=== PATIENT | female | born 1980 | race Hispanic/Latino ===

== ENCOUNTER 2017-05-17 20:48 | Emergency (ER) | payer OTHER ==
[2017-05-17 21:28] VITALS: BP 120/85; PULSE 75; RESP 18; TEMP 98.2; O2SAT 97; BMI 32.9
--- NOTE | 2017-05-17 22:10 | ED PDOC ---
Arrival/HPI - General Chief Complaint: Abdominal Pain Time Seen by Provider: 05/17/17 21:53 - History of Present Illness Narrative History of Present Illness (Text): 05/17/17 22:06 CC: LLQ pain x1 week This patient is a 37yo F w/ a Past medical history of endometriosis s/p hysterectomy (still with cervix and ovaries), celiac disease, history of colon cancer early in the family (last colonscopy was 2 years ago, they removed 2 precancerous polypys; her family members at 36/38 of colon CA) who is coming to the ER w/ a 1wk history of RLQ pain, fevers/chills. States she took ibuprofen to make it better, which helped both the pain and fevers. Patient is not on another form of control, is currently sexually active with one male partner without condoms. Denies headache, chest pain, shortness of breath, dysuria/freq/urg, or lower extremity pain swelling. Admits to lower abdominal pain, worse on the LLQ, colicky in nature that is relieved by ibuprofen. PastMedhx: Celiac disease, endometriosis s/p hysterectomy Meds: Denies FamHx: Colon CA in 30's with , thyroid cancer Surgeries: Hysterectomy Allergies: Gluten, grapefruit, PCN, sulfa (Emir Mario) Past Medical History - Infectious Disease Hx of Infectious Diseases: None - Cardiac Hx Cardiac Disorders: No - Pulmonary Hx Respiratory Disorders: No - HEENT Hx HEENT Disorder: No - Renal Hx Neurogenic Bladder: No - Endocrine/Metabolic Hx Diabetes Insipidus: No - Hematological/Oncological Hx Sickle Cell Disease: No - Musculoskeletal/Rheumatological Hx Fractures: No - Gastrointestinal Hx Gastrointestinal Disorders: Yes Other/Comment: celiac disease - Genitourinary/Gynecological Hx Genitourinary Disorders: No - Psychiatric Hx Psychophysiologic Disorder: No Hx Substance Use: No - Surgical History Hx Cholecystectomy: Yes Hx Hysterectomy: Yes Hx Orthopedic Surgery: Yes (L shoulder) - Anesthesia Hx Anesthesia: Yes Hx Anesthesia Reactions: No Family/Social History - Physician Review Nursing Documentation Reviewed: Yes Family/Social History: Diabetes, Hypertension, Neoplasm/Cancer Smoking Status: Current Some Days Smoker Hx Alcohol Use: No Hx Substance Use: No Allergies/Home Meds Allergies/Adverse Reactions: Allergies gluten Allergy (Verified 05/17/17 21:29) DIARRHEA grapefruit Allergy (Verified 05/17/17 21:29) ANAPHYLAXIS Penicillins Allergy (Verified 05/17/17 21:29) ANGIOEDEMA Sulfa (Sulfonamide Antibiotics) Allergy (Verified 05/17/17 21:29) ANAPHYLAXIS Home Medications: Home Meds Medication Instructions Recorded Confirmed No Known Home Med 05/17/17 05/17/17 Review of Systems - Review of Systems Constitutional: absent: Fatigue, Weight Change Eyes: absent: Vision Changes, Photophobia ENT: absent: Hearing Changes, Tinnitus Respiratory: absent: SOB, Cough Cardiovascular: absent: Chest Pain Gastrointestinal: Abdominal Pain, Diarrhea. absent: Stool Changes, Constipation , Nausea, Vomiting, Appetite Changes, Hematochezia, Hematemesis, Anorexia, Food Intolerance Genitourinary Female: absent: Dysuria, Frequency, Hematuria Musculoskeletal: absent: Arthralgias Skin: absent: Rash, Pruritis Neurological: absent: Headache, Dizziness Endocrine: absent: Diaphoresis Hemo/Lymphatic: absent: Adenopathy Psychiatric: absent: Anxiety, Depression Physical Exam Temperature: Afebrile Blood Pressure: Normal Pulse: Regular Respiratory Rate: Normal Appearance: Positive for: Non-Toxic (in slight pain laying flat on the bed ) Mental Status: Positive for: Alert and Oriented X 3 - Systems Exam Head: Present: Atraumatic Pupils: Present: PERRL Extroacular Muscles: Present: EOMI Conjunctiva: Present: Normal Mouth: No: Dry Pharnyx: No: ERYTHEMA, EXUDATE Neck: Present: Normal Range of Motion. No: Meningeal Signs Respiratory/Chest: Present: Clear to Auscultation, Good Air Exchange. No: Respiratory Distress, Accessory Muscle Use Cardiovascular: Present: Regular Rate and Rhythm, Normal S1, S2. No: Murmurs Abdomen: Present: Tenderness (LLQ), Rebound (LLQ), Guarding. No: Distention, Normal Bowel Sounds, Peritoneal Signs, McBurney's Point Tender, Rovsing's Sign Present, Hernias, Feeding Tubes, Ostomy Tubes, Mass/Organomegaly Genitourinary/Pelvic Exam: Present: Normal External Genitalia, Adenexal Tenderness (Left side), Cervical os Closed. No: Vaginal Discharge, Vaginal Bleeding, Vaginal Lesions, Adenexal Mass, Cervical Motion Tendernes, Odor Back: No: CVA Tenderness Upper Extremity: Present: Normal Inspection. No: Cyanosis, Edema Lower Extremity: Present: Normal Inspection. No: Edema Neurological: Present: GCS=15, CN II-XII Intact, Speech Normal Skin: Present: Warm Psychiatric: Present: Alert, Oriented x 3 Vital Signs Temp Pulse Resp BP Pulse Ox 05/17/17 21:28 98.2 F 75 18 120/85 97 Medical Decision Making ED Course and Treatment: Patient Seen With Resident: In agreement with resident note which contains more details about the patient. Patient was seen and evaluated with resident. Came up with plan and treatment together. (Helen Santoyo) 05/17/17 22:14 DDx: Ovarian Torsion vs Ovarian Cyst vs Celiac disease flare CMP CBC urinalysis preg test Pelvic US Lipase Pelvic exam unremarkable Dispo and reassess 05/17/17 22:58 negative Labs WNL Pending Transvaginal US 05/18/17 00:13 Pelvic US shows L Ovarian Cyst w/ small follicles; no sign of free fluid torsion or ectopic 05/18/17 00:21 The patient is stable for d/c as per Dr. Santoyo The patient should f/u with her private OBGYN within the week to discuss results and options The patient was told to take OTC ibuprofen for pain, as well as hot compresses to her abdomen (Emir Mario) - Lab Interpretations Lab Results: 05/17/17 22:36 05/17/17 22:36 Lab Results 05/17/17 22:36: Blood Type O NEGATIVE, Antibody Screen Negative, BBK History Checked No verified bt 05/17/17 22:36: pO2 57 H, VBG pH 7.39, VBG pCO2 42.0, VBG HCO3 25.4, VBG Total CO2 26.7, VBG O2 Sat (Calc) 94.0 H, VBG Base Excess 0.3, VBG Potassium 3.9, Sodium 138.0, Chloride 106.0, Glucose 97, Lactate 0.8, FiO2 21.0, Venous Blood Potassium 3.9 05/17/17 22:36: Sodium 141, Chloride 107, Potassium 4.2, Carbon Dioxide 25, Anion Gap 13, BUN 11, Creatinine 0.7, Est GFR ( Amer) > 60, Est GFR (Non- Af Amer) > 60, Random Glucose 98, Calcium 9.1, Total Bilirubin 0.6, AST 19, ALT 26, Alkaline Phosphatase 60, Total Protein 7.1, Albumin 4.0, Globulin 3.1, Albumin/Globulin Ratio 1.3, Lipase 96 05/17/17 22:36: Urine Color Yellow, Urine Appearance Clear, Urine pH 6.0, Ur Specific [place] >= 1.030, Urine Protein Trace H, Urine Glucose (UA) Negative, Urine Ketones Trace H, Urine Blood Small H, Urine Nitrate Negative, Urine Bilirubin Negative, Urine Urobilinogen 0.2, Ur Leukocyte Esterase Negative, Urine RBC 1 - 3, Urine WBC 2 - 5, Ur Epithelial Cells 6 - 8, Urine Bacteria Mod , Urine HCG, Qual Negative 05/17/17 22:36: WBC 9.5, RBC 4.79, Hgb 14.9, Hct 44.0, MCV 91.9, MCH 31.1, MCHC 33.9, RDW 13.9, Plt Count 288, MPV 9.3, Gran % 61.6, Lymph % (Auto) 25.7, [place] % (Auto) 7.6 H, Eos % (Auto) 4.8, Baso % (Auto) 0.3, Gran # 5.85, Lymph # 2.4, [place] # 0.7 H, Eos # 0.5, Baso # 0.03 - RAD Interpretation Radiology Orders: 05/17/17 22:01 TRANSVAGINAL [US] Stat - Medication Orders Current Medication Orders: Discontinued Medications Acetaminophen (Tylenol 325mg Tab) 650 mg PO STAT STA Stop: 05/17/17 22:24 Last Admin: 05/17/17 22:44 Dose: 650 mg MAR Pain/Vitals Document 05/17/17 22:44 SS (Rec: 05/17/17 22:44 SS [id number]) Pain Reassessment Is This A Pain ReAssessment? No Sleep Is patient sleeping during reassessment? No Presence of Pain Presence of Pain Yes Ketorolac Tromethamine (Toradol) 30 mg IVP STAT STA Stop: 05/17/17 23:56 Last Admin: 05/18/17 00:08 Dose: 30 mg MAR Pain Assessment Document 05/18/17 00:08 SS (Rec: 05/18/17 00:08 SS [id number]) Pain Reassessment Is this a pain reassessment? Yes Sleep Is patient sleeping during reassessment? No Presence of Pain Presence of Pain Yes Location Upper or Lower Lower Pain Location Body Site Abdomen IVP Administration Document 05/18/17 00:08 SS (Rec: 05/18/17 00:08 SS [id number]) Charges for Administration # of IVP Administrations 1 Ondansetron HCl (Zofran Inj) 4 mg IVP STAT STA Stop: 05/17/17 22:24 Last Admin: 05/17/17 22:44 Dose: 4 mg IVP Administration Document 05/17/17 22:44 SS (Rec: 05/17/17 22:[address]) Charges for Administration # of IVP Administrations 1 Disposition/Present on Arrival - Present on Arrival Any Indicators Present on Arrival: No History of DVT/PE: No History of Uncontrolled Diabetes: No Urinary Catheter: No History of Decub. Ulcer: No History Surgical Site Infection Following: None - Disposition Have Diagnosis and Disposition been Completed?: Yes Disposition Time: 00:22 Patient Plan: Discharge - Disposition Diagnosis: Ovarian cyst Diagnosis: (Ruled Out): Ovarian cyst affecting in first trimester, antepartum Disposition: HOME/ ROUTINE Patient Problems: Current Active Problems Problem Status Onset Ovarian cyst Acute Condition: FAIR Discharge Instructions (ExitCare): Ovarian Cyst (ED) Additional Instructions: You should follow up with your OBGYN within the week to discuss your results of your L Ovarian Cyst You can take Ibuprofen OTC as indicated on the bottle for pain and use warm compresses to the abdomen for pain relief It was a pleasure taking care of you, please feel better. [facility] - Follow up with primary Forms: [employer] (Welsh)
[2017-05-17 22:41] LABS: BASO # 0.03 K/mm3 (0.0-2.0); BASO % 0.3 % (0.0-3.0); EOS # 0.5 (0.0-0.7); EOS % 4.8 % (1.5-5.0); GRAN # 5.85 (1.4-6.5); GRAN % 61.6 % (50.0-68.0); LYMPH # 2.4 (1.2-3.4); LYMPH % 25.7 % (22.0-35.0); MEAN CELL VOLUME 91.9 fl (80.0-105.0); MEAN CORPUSCULAR HEMOGLOBIN 31.1 pg (25.0-35.0); MEAN CORPUSCULAR HGB CONC 33.9 g/dl (31.0-37.0); MEAN PLATELET VOLUME 9.3 fl (7.0-11.0); MONO # 0.7 (0.1-0.6); MONO % 7.6 % (1.0-6.0); RED CELL DISTRIBUTION WIDTH 13.9 % (11.5-14.5); VENOUS BLOOD GAS BASE EXCESS 0.3 mmol/L (0.0-2.0); VENOUS BLOOD PH 7.39 (7.32-7.43); WHITE BLOOD COUNT 9.5 10^3/ul (4.5-11.0)
[2017-05-17 22:42] LABS: URINE BILIRUBIN NEGATIVE (NEGATIVE); URINE BLOOD SMALL (NEGATIVE); URINE GLUCOSE (UA) NEGATIVE (NEGATIVE); URINE KETONE TRACE mg/dL (NEGATIVE); URINE LEUKOCYTE ESTERASE NEGATIVE Leu/uL (NEGATIVE); URINE PROTEIN TRACE mg/dL (<30 mg/dL); URINE UROBILINOGEN 0.2 E.U./dL (<1 E.U./dL)
[2017-05-17 22:50] LABS: ALB/GLOB RATIO 1.3 (1.1-1.8); ALKALINE PHOSPHATASE 60 U/L (38-126); ALT/SGPT 26 U/L (7-56); AST/SGOT 19 U/L (14-36); BILIRUBIN,TOTAL 0.6 mg/dL (0.2-1.3); BLOOD UREA NITROGEN 11 mg/dL (7-21); CALCIUM 9.1 mg/dL (8.4-10.5); CARBON DIOXIDE 25 mmol/L (21-33); CHLORIDE 107 mmol/L (98-107); GFR AFRICAN-AMERICAN > 60; GLUCOSE,RANDOM 98 mg/dL (70-110); LIPASE 96 U/L (23-300); POTASSIUM 4.2 mmol/L (3.6-5.0); SODIUM 141 mmol/L (132-148); TOTAL PROTEIN 7.1 g/dL (5.8-8.3)
[2017-05-17 22:51] LABS: URINE APPEARANCE CLEAR (CLEAR); URINE COLOR YELLOW (YELLOW)
[2017-05-17 22:54] LABS: URINE BACTERIA MOD (NEG)
--- NOTE | 2017-05-17 23:59 | US ---
EXAM: US Pelvis Complete, Transabdominal CLINICAL HISTORY: 37 years old, female; Pain; Pelvic pain TECHNIQUE: Real-time transabdominal pelvic ultrasound (complete) with image documentation. COMPARISON: No relevant prior studies available. FINDINGS: Uterus/cervix: Hysterectomy. Right ovary: 3.1 x 2.9 x 3.0 cm in size. No mass. Small follicles. Normal flow. Left ovary: 3.1 x 2.3 x 2.7 cm in size. 1.1 x 1.2 x 1.1 cm anechoic lesion. Small follicles. Normal flow. Free fluid: No significant free fluid. Bladder: Unremarkable as visualized. IMPRESSION: 1. LEFT ovarian cyst. 2. Incidental/non-acute findings are described above. EXAM: US Pelvis, Transvaginal CLINICAL HISTORY: 37 years old, female; Pain; Pelvic pain TECHNIQUE: Real-time transvaginal pelvic ultrasound (complete) with image documentation. Transvaginal imaging was used for better evaluation of the endometrium and adnexa. COMPARISON: No relevant prior studies available. FINDINGS: Uterus/cervix: Hysterectomy. Right ovary: 3.1 x 2.9 x 3.0 cm in size. No mass. Small follicles. Normal flow. Left ovary: 3.1 x 2.3 x 2.7 cm in size. 1.1 x 1.2 x 1.1 cm anechoic lesion. Small follicles. Normal flow. Free fluid: No significant free fluid. Bladder: Empty bladder which cannot be evaluated with this probe.
== END 2017-05-18 00:41 | disposition home or self-care (01) ==
LOC: ED 20:48
DX: N83.202 Unspecified ovarian cyst, left side (principal)
CPT/HCPCS: 76830; 80053; 81001; 82803; 83690; 84703; 85025; 86850; 86900; 96374; 96375; 99283; J1885; J2405

== ENCOUNTER 2017-06-30 19:11 | Emergency (ER) | payer OTHER ==
[2017-06-30 19:12] VITALS: BMI 32.9
[2017-06-30 19:27] VITALS: RESP 18; TEMP 98.4; O2SAT 97
--- NOTE | 2017-06-30 19:41 | ED PDOC ---
Arrival/HPI <Rajiv Potter - Last Filed: 06/30/17 19:53> - General Historian: Patient <Donis Agarwal - Last Filed: 06/30/17 20:31> - General Chief Complaint: Chest Pain Time Seen by Provider: 06/30/17 19:23 - History of Present Illness Narrative History of Present Illness (Text): 06/30/17 19:35 37yo female with PMHx of Celiac disease present with complaint of worsening nonproductive cough. states she was seen at Urgent care and was given Zpack without relieve. taking Nyquil without relieve. Started having right sided chest and back pain with cough since yesterday. Denies fever, chills, SOB, diaphoresis, LE edema, calf pain, fever, chills, recent travel, OCP use, any other complaint. (Donis Agarwal) Past Medical History - Provider Review Nursing Documentation Reviewed: Yes - Infectious Disease Hx of Infectious Diseases: None - Cardiac Hx Cardiac Disorders: No - Pulmonary Hx Respiratory Disorders: No - HEENT Hx HEENT Disorder: No - Renal Hx Neurogenic Bladder: No - Endocrine/Metabolic Hx Diabetes Insipidus: No - Hematological/Oncological Hx Sickle Cell Disease: No - Musculoskeletal/Rheumatological Hx Fractures: No - Gastrointestinal Hx Gastrointestinal Disorders: Yes Other/Comment: celiac disease - Genitourinary/Gynecological Hx Genitourinary Disorders: No - Psychiatric Hx Psychophysiologic Disorder: No Hx Substance Use: No - Surgical History Hx Cholecystectomy: Yes Hx Hysterectomy: Yes Hx Orthopedic Surgery: Yes (L shoulder) - Anesthesia Hx Anesthesia: Yes Hx Anesthesia Reactions: No <Donis Agarwal - Last Filed: 06/30/17 20:31> Family/Social History - Physician Review Nursing Documentation Reviewed: Yes Family/Social History: Unknown Family HX Smoking Status: Current Some Days Smoker Hx Alcohol Use: No Hx Substance Use: No <Donis Agarwal A - Last Filed: 06/30/17 20:31> Allergies/Home Meds <Rajiv Potter - Last Filed: 06/30/17 19:53> <Donis Agarwal A - Last Filed: 06/30/17 20:31> Allergies/Adverse Reactions: Allergies gluten Allergy (Verified 06/30/17 19:15) DIARRHEA grapefruit Allergy (Verified 06/30/17 19:15) ANAPHYLAXIS Penicillins Allergy (Verified 06/30/17 19:15) ANGIOEDEMA Sulfa (Sulfonamide Antibiotics) Allergy (Verified 06/30/17 19:15) ANAPHYLAXIS Review of Systems - Physician Review All systems were reviewed & negative as marked: Yes - Review of Systems Constitutional: Normal Eyes: Normal ENT: Normal Respiratory: Cough. absent: SOB, Sputum, Wheezing Cardiovascular: Normal Gastrointestinal: Normal Genitourinary Female: Normal Musculoskeletal: Normal Skin: Normal Neurological: Normal Endocrine: Normal Hemo/Lymphatic: Normal Psychiatric: Normal <Donis Agarwal A - Last Filed: 06/30/17 20:31> Physical Exam Vital Signs Reviewed: Yes Temperature: Afebrile Blood Pressure: Normal Pulse: Regular Respiratory Rate: Normal Appearance: Positive for: Well-Appearing, Non-Toxic, Comfortable Pain Distress: None Mental Status: Positive for: Alert and Oriented X 3 - Systems Exam Head: Present: Atraumatic, Normocephalic Pupils: Present: PERRL Extroacular Muscles: Present: EOMI Conjunctiva: Present: Normal Mouth: Present: Moist Mucous Membranes Neck: Present: Normal Range of Motion Respiratory/Chest: Present: Clear to Auscultation, Good Air Exchange. No: Respiratory Distress, Accessory Muscle Use, Wheezes, Decreased Breath Sounds, Rales, Retracting, Rhonchi, Tachypneic, Tender to Palpation Cardiovascular: Present: Regular Rate and Rhythm, Normal S1, S2. No: Murmurs Abdomen: Present: Normal Bowel Sounds. No: Tenderness, Distention, Peritoneal Signs Back: Present: Normal Inspection Upper Extremity: Present: Normal Inspection. No: Cyanosis, Edema Lower Extremity: Present: Normal Inspection. No: Edema Neurological: Present: GCS=15, CN II-XII Intact, Speech Normal Skin: Present: Warm, Dry, Normal Color. No: Rashes Psychiatric: Present: Alert, Oriented x 3, Normal Insight, Normal Concentration <Donis Agarwal A - Last Filed: 06/30/17 20:31> Vital Signs Temp Pulse Resp BP Pulse Ox 06/30/17 19:26 98.4 F 78 18 136/81 97 Medical Decision Making <Rajiv Potter - Last Filed: 06/30/17 19:53> <Donis Agarwal A - Last Filed: 06/30/17 20:31> ED Course and Treatment: 06/30/17 20:25 Pt was afebrile and comfortable in ED EKG NSR @87bpm CXR NAD PT was given anittussive in ED. Result was DW the pt. she will be DC home with antitussive and albuterol inhaler. Referred to her PMD. TRT ED for any new or worsening symptoms. (Donis Agarwal) - Lab Interpretations Lab Results: Lab Results 06/30/17 19:55: Urine HCG, Qual Negative - RAD Interpretation Radiology Orders: 06/30/17 19:34 CHEST TWO VIEWS (PA/LAT) [RAD] Stat - PA / PLANE CAPTAIN / Resident Statement / has reviewed & agrees with the documentation as recorded. / has examined the patient and agrees with the treatment plan. <Rajiv Potter - Last Filed: 06/30/17 19:53> Disposition/Present on Arrival <Rajiv Potter - Last Filed: 06/30/17 19:53> - Present on Arrival Any Indicators Present on Arrival: No History of DVT/PE: No History of Uncontrolled Diabetes: No Urinary Catheter: No History of Decub. Ulcer: No History Surgical Site Infection Following: None - Disposition Have Diagnosis and Disposition been Completed?: Yes Disposition Time: 20:30 Patient Plan: Discharge <Donis Agarwal - Last Filed: 06/30/17 20:31> - Disposition Diagnosis: Cough Disposition: HOME/ ROUTINE Condition: STABLE Discharge Instructions (ExitCare): Acute Cough (ED) Additional Instructions: Follow up with your doctor Return to ED for any new or worsening symptoms Prescriptions: Albuterol HFA [Ventolin HFA 90 mcg/actuation (8 g)] 2 puff IH [id number] #1 puff Promethazine [Phenergan Syrup] 6.25 mg PO Q6 #100 ml Referrals: PCP,NO [Primary Care Provider] - Follow up with primary [facility] [place] [Outside] - Follow up with primary Forms: [employer] (Burkinan)
[2017-06-30] MEDS ORDERED: Promethazine/Cod 6.25mg-10mg/5ml Syr UD PO STA (20:25)
[2017-07-01 02:52] VITALS: BP 132/78; PULSE 76
--- NOTE | 2017-07-01 09:11 | RAD ---
HISTORY: cough COMPARISON: No prior. TECHNIQUE: Chest PA and lateral FINDINGS: LUNGS: No active pulmonary disease. PLEURA: No significant pleural effusion identified. No pneumothorax apparent. CARDIOVASCULAR: Normal. OSSEOUS STRUCTURES: Minor multilevel degenerative spondylosis of the thoracic spine. VISUALIZED UPPER ABDOMEN: Normal. OTHER FINDINGS: None. IMPRESSION: No active disease.
--- NOTE | 2017-07-01 10:46 | CARD ---
APPROVED REPORT EKG Measurement Heart [id number] <Conclusion> Normal sinus rhythm Possible Left atrial enlargement Borderline ECG
== END 2017-06-30 21:01 | disposition home or self-care (01) ==
LOC: ED 19:11
DX: R05 Cough (principal); Z88.0 Allergy status to penicillin; Z88.2 Allergy status to sulfonamides

== ENCOUNTER 2018-01-09 22:49 | Emergency (ER) | payer OTHER ==
[2018-01-09 23:18] VITALS: BMI 31.6
--- NOTE | 2018-01-09 23:52 | ED PDOC ---
Arrival/HPI - General Chief Complaint: Anxiety Time Seen by Provider: 01/09/18 22:56 Historian: Patient - History of Present Illness Narrative History of Present Illness (Text): 01/09/18 23:53 37yo female with pmhx of anxiety bib EMS for anxiety. Patient states she was placed on Xanax 0.25mg after a traumatic incident and she took her last dose this morning. States her next appointment is in 2weeks and she started having panic attacks this night. States she was suppose to be on Xanax 3times daily. She denies chest pain, SOB, diaphoresis, fever, chills, DIAZ, SI/Hi, nausea, vomiting, focal weakness, dizziness, any other complaint. Past Medical History - Provider Review Nursing Documentation Reviewed: Yes - Infectious Disease Hx of Infectious Diseases: None - Cardiac Hx Cardiac Disorders: No - Pulmonary Hx Respiratory Disorders: No - HEENT Hx HEENT Disorder: No - Renal Hx Neurogenic Bladder: No - Endocrine/Metabolic Hx Diabetes Insipidus: No - Hematological/Oncological Hx Sickle Cell Disease: No - Musculoskeletal/Rheumatological Hx Fractures: No - Gastrointestinal Hx Gastrointestinal Disorders: Yes Other/Comment: celiac disease - Genitourinary/Gynecological Hx Genitourinary Disorders: No - Psychiatric Hx Psychophysiologic Disorder: No Hx Panic Disorder: Yes Hx Post Traumatic Stress Disorder: Yes Hx Substance Use: No Other/Comment: social anxiety, generalized anxiety - Surgical History Hx Cholecystectomy: Yes Hx Hysterectomy: Yes Hx Orthopedic Surgery: Yes (L shoulder) - Anesthesia Hx Anesthesia: Yes Hx Anesthesia Reactions: No Family/Social History - Physician Review Nursing Documentation Reviewed: Yes Family/Social History: Unknown Family HX Smoking Status: Heavy Smoker > 10 Cigarettes Daily Hx Alcohol Use: Yes Frequency of alcohol use: Socially Hx Substance Use: No Allergies/Home Meds Allergies/Adverse Reactions: Allergies gluten Allergy (Verified 01/09/18 23:29) DIARRHEA grapefruit Allergy (Verified 01/09/18 23:29) ANAPHYLAXIS Penicillins Allergy (Verified 01/09/18 23:29) ANGIOEDEMA Sulfa (Sulfonamide Antibiotics) Allergy (Verified 01/09/18 23:29) ANAPHYLAXIS Review of Systems - Physician Review All systems were reviewed & negative as marked: Yes - Review of Systems Constitutional: Normal Eyes: Normal ENT: Normal Respiratory: Normal Cardiovascular: Normal Gastrointestinal: Normal Genitourinary Female: Normal Musculoskeletal: Normal Skin: Normal Neurological: Normal Endocrine: Normal Hemo/Lymphatic: Normal Psychiatric: Anxiety Physical Exam Vital Signs Reviewed: Yes Vital Signs Temp Pulse Resp BP Pulse Ox 01/10/18 01:44 99 01/10/18 01:34 98.0 F 62 18 102/68 98 01/09/18 23:04 97.9 F 78 20 120/76 98 Temperature: Afebrile Blood Pressure: Normal Pulse: Regular Respiratory Rate: Normal Appearance: Positive for: Well-Appearing, Non-Toxic, Comfortable Pain Distress: None Mental Status: Positive for: Alert and Oriented X 3 - Systems Exam Head: Present: Atraumatic, Normocephalic Pupils: Present: PERRL Extroacular Muscles: Present: EOMI Conjunctiva: Present: Normal Mouth: Present: Moist Mucous Membranes Neck: Present: Normal Range of Motion Respiratory/Chest: Present: Clear to Auscultation, Good Air Exchange. No: Respiratory Distress, Accessory Muscle Use Cardiovascular: Present: Regular Rate and Rhythm, Normal S1, S2. No: Murmurs Abdomen: No: Tenderness, Distention, Peritoneal Signs Back: Present: Normal Inspection Upper Extremity: Present: Normal Inspection. No: Cyanosis, Edema Lower Extremity: Present: Normal Inspection. No: Edema Neurological: Present: GCS=15, CN II-XII Intact, Speech Normal Skin: Present: Warm, Dry, Normal Color. No: Rashes Psychiatric: Present: Alert, Oriented x 3, Normal Insight, Normal Concentration Medical Decision Making ED Course and Treatment: 01/10/18 03:02 PT in ED for stated history. Labs was unremarkable. She notes that her anxiety resolved in ED with medication. She was advised to f/u with her PMD for Xanax prescription. - Lab Interpretations Lab Results: 01/10/18 00:05 01/10/18 00:05 Lab Results 01/10/18 01:03: Urine Opiates Screen Negative, Urine Methadone Screen Negative, Ur Barbiturates Screen Negative, Ur Phencyclidine Scrn Negative, Ur Amphetamines Screen Negative, U Benzodiazepines Scrn Positive H, U Oth Cocaine Metabols Negative, U Cannabinoids Screen Negative 01/10/18 01:03: Urine Color Yellow, Urine Appearance Sl cloudy, Urine pH 6.0, Ur Specific [place] 1.025, Urine Protein Trace H, Urine Glucose (UA) Negative, Urine Ketones Trace H, Urine Blood Small H, Urine Nitrate Negative, Urine Bilirubin Negative, Urine Urobilinogen 1.0 H, Ur Leukocyte Esterase Trace H, Urine RBC 1 - 3, Urine WBC 2 - 5, Ur Epithelial Cells Many, Urine Bacteria Small 01/10/18 00:05: Alcohol, Quantitative < 10 01/10/18 00:05: Salicylates < 1 L, Acetaminophen < 10.0 L 01/10/18 00:05: Sodium 141, Potassium 4.0, Chloride 107, Carbon Dioxide 24, Anion Gap 14, BUN 10, Creatinine 0.6 L, Est GFR ( Amer) > 60, Est GFR ( Non-Af Amer) > 60, Random Glucose 117 H, Calcium 9.1, Magnesium 2.1, Total Bilirubin 0.3, AST 22, ALT 15, Alkaline Phosphatase 65, Total Protein 7.5, Albumin 4.2, Globulin 3.3, Albumin/Globulin Ratio 1.3 01/10/18 00:05: WBC 10.1, RBC 4.87, Hgb 14.9, Hct 43.7, MCV 89.7, MCH 30.6, MCHC 34.1, RDW 13.5, Plt Count 303, MPV 8.9, Gran % 74.8 H, Lymph % (Auto) 18.5 L, [place] % (Auto) 4.8, Eos % (Auto) 1.6, Baso % (Auto) 0.3, Gran # 7.57 H, Lymph # (Auto) 1.9, [place] # (Auto) 0.5, Eos # (Auto) 0.2, Baso # (Auto) 0.03 - Medication Orders Current Medication Orders: Discontinued Medications Alprazolam (Xanax) 0.25 mg PO STAT STA PRN Reason: Protocol Stop: 01/09/18 23:20 Last Admin: 01/09/18 23:48 Dose: 0.25 mg Ondansetron HCl (Zofran Odt) 4 mg PO STAT STA Stop: 01/10/18 00:06 Last Admin: 01/10/18 00:28 Dose: 4 mg Disposition/Present on Arrival - Present on Arrival Any Indicators Present on Arrival: No History of DVT/PE: No History of Uncontrolled Diabetes: No Urinary Catheter: No History of Decub. Ulcer: No History Surgical Site Infection Following: None - Disposition Have Diagnosis and Disposition been Completed?: Yes Diagnosis: Anxiety Disposition: HOME/ ROUTINE Disposition Time: 01:15 Patient Plan: Discharge Condition: STABLE Discharge Instructions (ExitCare): Anxiety, Adult (DC) Additional Instructions: Follow up with your Doctor Return to ED for new symptoms [facility]errals: [facility] [[facility]] - Follow up with primary Forms: [employer] (Sinhala)
[2018-01-10 00:42] LABS: BASO # 0.03 K/mm3 (0.0-2.0); BASO % 0.3 % (0.0-3.0); EOS # 0.2 (0.0-0.7); EOS % 1.6 % (1.5-5.0); GRAN # 7.57 (1.4-6.5); GRAN % 74.8 % (50.0-68.0); HEMOGLOBIN 14.9 g/dL (12.0-16.0); LYMPH # 1.9 (1.2-3.4); LYMPH % 18.5 % (22.0-35.0); MEAN CELL VOLUME 89.7 fl (80.0-105.0); MEAN CORPUSCULAR HEMOGLOBIN 30.6 pg (25.0-35.0); MEAN CORPUSCULAR HGB CONC 34.1 g/dl (31.0-37.0); MEAN PLATELET VOLUME 8.9 fl (7.0-11.0); MONO # 0.5 (0.1-0.6); MONO % 4.8 % (1.0-6.0); RBC 4.87 10^6/uL (3.5-6.1); RED CELL DISTRIBUTION WIDTH 13.5 % (11.5-14.5); WHITE BLOOD COUNT 10.1 10^3/ul (4.5-11.0)
[2018-01-10 00:50] LABS: ACETAMINOPHEN < 10.0 ug/ml (10.0-20.0); SALICYLATE < 1 mg/dL (2.0-20.0)
[2018-01-10 00:51] LABS: ALB/GLOB RATIO 1.3 (1.1-1.8); ALBUMIN 4.2 g/dL (3.0-4.8); ALT/SGPT 15 U/L (7-56); AST/SGOT 22 U/L (14-36); BLOOD UREA NITROGEN 10 mg/dL (7-21); CALCIUM 9.1 mg/dL (8.4-10.5); GFR AFRICAN-AMERICAN > 60; GFR NON-AFRICAN AMERICAN > 60
[2018-01-10 01:30] LABS: URINE BILIRUBIN NEGATIVE (NEGATIVE); URINE BLOOD SMALL (NEGATIVE); URINE GLUCOSE (UA) NEGATIVE (NEGATIVE); URINE LEUKOCYTE ESTERASE TRACE Leu/uL (NEGATIVE); URINE PROTEIN TRACE mg/dL (<30 mg/dL)
[2018-01-10 01:34] LABS: URINE APPEARANCE SL CLOUDY (CLEAR); URINE COLOR YELLOW (YELLOW)
[2018-01-10 01:35] VITALS: BP 102/68; PULSE 62; RESP 18; TEMP 98
[2018-01-10 01:45] VITALS: O2SAT 99
[2018-01-10 01:49] LABS: PHENCYCLIDINE, UR NEGATIVE (NEGATIVE)
[2018-01-10 01:51] LABS: URINE BACTERIA SMALL (NEG); URINE EPITHELIAL CELLS MANY /hpf (0-5)
[2018-01-10 02:18] LABS: BARBITURATES, UR NEGATIVE (NEGATIVE); BENZODIAZEPINES, UR POSITIVE (NEGATIVE); OPIATES, UR NEGATIVE (NEGATIVE)
--- NOTE | 2018-01-10 09:35 | CARD ---
APPROVED REPORT EKG Measurement Heart [id number] [place] [id number] <Conclusion> Normal sinus rhythm Normal ECG
== END 2018-01-10 01:44 | disposition home or self-care (01) ==
LOC: ED 22:49
DX: F41.9 Anxiety disorder, unspecified (principal)

== ENCOUNTER 2018-01-10 11:33 | Emergency (ER) | payer OTHER ==
[2018-01-10 11:33] VITALS: BMI 31.6
[2018-01-10] MEDS ORDERED: Sodium Chloride 0.9% 1,000 ML IV STA (12:07)
--- NOTE | 2018-01-10 12:14 | ED PDOC ---
Arrival/HPI - General Historian: Patient - History of Present Illness Time/Duration: > week Symptom Onset: Gradual Symptom Course: Unchanged <Marcellus Fernandez - Last Filed: 01/10/18 16:08> <Rex Luciano - Last Filed: 01/10/18 20:29> - General Chief Complaint: Anxiety Time Seen by Provider: 01/10/18 11:45 - History of Present Illness Narrative History of Present Illness (Text): 37yo female with PMHx of generalized anxiety disorder presents with anxiety. Patient states she was started on xanax 2 weeks ago after having a nightmare and panic attack. She took her last dose yesterday morning. States her next psychiatric appointment is on February 15. She denies chest pain, SOB, diaphoresis, fever, chills, vomiting, focal weakness, dizziness, suicidal ideation or homicidal ideation. 01/10/18 12:35 (Marcellus Fernandez) Past Medical History - Provider Review Nursing Documentation Reviewed: Yes - Infectious Disease Hx of Infectious Diseases: None - Cardiac Hx Cardiac Disorders: No - Pulmonary Hx Respiratory Disorders: No - Neurological Hx Neurological Disorder: No - HEENT Hx HEENT Disorder: No - Renal Hx Renal Disorder: No - Endocrine/Metabolic Hx Endocrine Disorders: No - Hematological/Oncological Hx Blood Disorders: No - Integumentary Hx Dermatological Disorder: No - Musculoskeletal/Rheumatological Hx Musculoskeletal Disorders: No - Gastrointestinal Hx Gastrointestinal Disorders: Yes Other/Comment: celiac disease - Genitourinary/Gynecological Hx Genitourinary Disorders: No - Psychiatric Hx Psychophysiologic Disorder: Yes Hx Panic Disorder: Yes Hx Post Traumatic Stress Disorder: Yes Hx Substance Use: No Other/Comment: social anxiety, generalized anxiety - Surgical History Hx Cholecystectomy: Yes Hx Hysterectomy: Yes Hx Orthopedic Surgery: Yes (L shoulder) - Anesthesia Hx Anesthesia: Yes Hx Anesthesia Reactions: No <Marcellus Fernandez - Last Filed: 01/10/18 16:08> Family/Social History - Physician Review Nursing Documentation Reviewed: Yes Family/Social History: No Known Family HX Smoking Status: Heavy Smoker > 10 Cigarettes Daily Hx Alcohol Use: Yes Hx Substance Use: No <Marcellus Fernandez - Last Filed: 01/10/18 16:08> Allergies/Home Meds <Marcellus Fernandez - Last Filed: 01/10/18 16:08> <Rex Luciano - Last Filed: 01/10/18 20:29> Allergies/Adverse Reactions: Allergies gluten Allergy (Verified 01/10/18 11:42) DIARRHEA grapefruit Allergy (Verified 01/10/18 11:42) ANAPHYLAXIS Penicillins Allergy (Verified 01/10/18 11:42) ANGIOEDEMA Sulfa (Sulfonamide Antibiotics) Allergy (Verified 01/10/18 11:42) ANAPHYLAXIS Home Medications: Home Meds Medication Instructions Recorded Confirmed No Known Home Med 01/10/18 01/10/18 Review of Systems - Review of Systems Constitutional: Normal Eyes: Normal. absent: Vision Changes, Photophobia ENT: Normal. absent: Hearing Changes Respiratory: Normal. absent: SOB, Cough, Wheezing Cardiovascular: Normal. absent: Chest Pain, Palpitations, Syncope Gastrointestinal: Nausea. absent: Abdominal Pain, Diarrhea, Vomiting Genitourinary Female: Normal Musculoskeletal: Normal Skin: Normal Neurological: Normal. absent: Headache, Dizziness Endocrine: Normal Psychiatric: Anxiety. absent: Depression, Suicidal Ideation <Marcellus Fernandez - Last Filed: 01/10/18 16:08> Physical Exam Vital Signs Reviewed: Yes Temperature: Afebrile Blood Pressure: Normal Pulse: Regular Respiratory Rate: Normal Appearance: Positive for: Well-Appearing, Non-Toxic Pain Distress: None Mental Status: Positive for: Alert and Oriented X 3 - Systems Exam Head: Present: Atraumatic, Normocephalic. No: Tenderness Pupils: Present: PERRL Extroacular Muscles: Present: EOMI Conjunctiva: Present: Normal Mouth: Present: Moist Mucous Membranes Neck: Present: Normal Range of Motion Respiratory/Chest: Present: Clear to Auscultation Cardiovascular: Present: Regular Rate and Rhythm, Normal S1, S2 Abdomen: No: Tenderness, Distention Upper Extremity: No: Edema Lower Extremity: No: Edema Neurological: Present: GCS=15, CN II-XII Intact Skin: Present: Warm Psychiatric: Present: Alert, Oriented x 3, Anxious, Other (sobbing crying). No : Suicidal Ideation, Homicidal Ideation, Hallucinations <Marcellus Fernandez - Last Filed: 01/10/18 16:08> Vital Signs Temp Pulse Resp BP Pulse Ox 01/10/18 18:15 77 16 149/87 97 01/10/18 17:15 78 16 127/87 98 01/10/18 15:15 79 16 141/78 98 01/10/18 13:37 98.0 F 78 16 138/81 98 01/10/18 12:32 98.5 F 82 17 148/92 H 98 Medical Decision Making <Marcellus Fernandez - Last Filed: 01/10/18 16:08> - Lab Interpretations I have reviewed the lab results: Yes - RAD Interpretation Medical Records Analyst: Radiologist <Rex Luciano - Last Filed: 01/10/18 20:29> ED Course and Treatment: Plan -Ativan -EKG, CBC, PES evaluation, UDS -reasses 01/10/18 12:47 Patients lab work is WNL, chest xray is clear for any active pulmonary disease. Patient is cleared medically for psychiatric disposition. 01/10/18 13:31 Patient stated she is nauseas and anxious, give another dose of ativan and zofran (Marcellus Fernandez) 01/10/18 Patient Seen With Resident: In agreement with resident note. Patient was seen and evaluated with resident, came up with plan and treatment together. 01/10/18 Chest X-ray: Creator : Delvis Whiatker MD IMPRESSION: No active disease. (Rex Luciano) - Lab Interpretations Lab Results: 01/10/18 12:45 01/10/18 12:45 Lab Results 01/10/18 12:45: Alcohol, Quantitative < 10 01/10/18 12:45: Urine Opiates Screen Negative, Urine Methadone Screen Negative, Ur Barbiturates Screen Negative, Ur Phencyclidine Scrn Negative, Ur Amphetamines Screen Negative, U Benzodiazepines Scrn Positive H, U Oth Cocaine Metabols Negative, U Cannabinoids Screen Negative 01/10/18 12:45: Sodium 143, Potassium 4.0, Chloride 107, Carbon Dioxide 23, Anion Gap 17, BUN 9, Creatinine 0.6 L, Est GFR ( Amer) > 60, Est GFR (Non -Af Amer) > 60, Random Glucose 110, Calcium 9.5, Magnesium 2.1, Total Bilirubin 0.7, AST 17, ALT 24, Alkaline Phosphatase 73, Total Creatine Kinase 49, Total Protein 8.2, Albumin 4.6, Globulin 3.6, Albumin/Globulin Ratio 1.3 01/10/18 12:45: Urine Color Yellow, Urine Appearance Turbid, Urine pH 6.0, Ur Specific [place] >= 1.030, Urine Protein Trace H, Urine Glucose (UA) Negative, Urine Ketones Negative, Urine Blood Small H, Urine Nitrate Negative, Urine Bilirubin Negative, Urine Urobilinogen 1.0 H, Ur Leukocyte Esterase Trace H, Urine RBC 0 - 2, Urine WBC 5 - 10, Ur Epithelial Cells 6 - 8, Urine Bacteria Many, Urine HCG, Qual Negative 01/10/18 12:45: WBC 9.3, RBC 5.17, Hgb 15.8, Hct 46.2, MCV 89.4, MCH 30.6, MCHC 34.2, RDW 13.4, Plt Count 341, MPV 8.9, Gran % 75.9 H, Lymph % (Auto) 16.8 L, [place] % (Auto) 6.0, Eos % (Auto) 1.0 L, Baso % (Auto) 0.3, Gran # 7.07 H, Lymph # (Auto) 1.6, [place] # (Auto) 0.6, Eos # (Auto) 0.1, Baso # (Auto) 0.03 - RAD Interpretation Radiology Orders: 01/10/18 12:01 CHEST PORTABLE [RAD] Stat - Medication Orders Current Medication Orders: Ondansetron HCl (Zofran Inj) 4 mg IVP STAT STA Stop: 01/10/18 20:28 Discontinued Medications Sodium Chloride (Sodium Chloride 0.9%) 1,000 mls @ 999 mls/hr IV .Q1H1M STA Stop: 01/10/18 13:07 Last Admin: 01/10/18 12:39 Dose: 999 mls/hr eMAR Start Stop Document 01/10/18 12:39 LADI (Rec: 01/10/18 12:39 [place] [facility] [place] [facility] [id number] Intravenous Solution Start Date 01/10/18 Start Time 12:39 End Date 01/10/18 End time 13:39 Total Infusion Time 60 Lorazepam (Ativan) 2 mg IVP ONCE ONE PRN Reason: Protocol Stop: 01/10/18 12:08 Last Admin: 01/10/18 12:39 Dose: 2 mg IVP Administration Document 01/10/18 12:39 LADI (Rec: 01/10/18 12:39 [id number] Charges for Administration # of IVP Administrations 1 Lorazepam (Ativan) 2 mg IVP ONCE ONE PRN Reason: Protocol Stop: 01/10/18 15:41 Last Admin: 01/10/18 16:31 Dose: 2 mg IVP Administration Document 01/10/18 16:31 LADI (Rec: 01/10/18 16:32 [place]AD[facility] [place] [facility] [id number] Charges for Administration # of IVP Administrations 1 Lorazepam (Ativan) 2 mg IVP ONCE ONE PRN Reason: Protocol Stop: 01/10/18 20:21 Ondansetron HCl (Zofran Inj) 2 mg IVP STAT STA Stop: 01/10/18 12:08 Last Admin: 01/10/18 12:38 Dose: 2 mg IVP Administration Document 01/10/18 12:38 LADI (Rec: 01/10/18 12:38 [facility]I [id number] Charges for Administration # of IVP Administrations 1 Ondansetron HCl (Zofran Inj) 2 mg IVP STAT STA Stop: 01/10/18 15:42 Last Admin: 01/10/18 16:31 Dose: 2 mg IVP Administration Document 01/10/18 16:31 LADI (Rec: 01/10/18 16:31 [facility]ADI [id number]) Charges for Administration # of IVP Administrations 1 Disposition/Present on Arrival - Present on Arrival Any Indicators Present on Arrival: No History of DVT/PE: No History of Uncontrolled Diabetes: No Urinary Catheter: No History of Decub. Ulcer: No History Surgical Site Infection Following: None - Disposition Have Diagnosis and Disposition been Completed?: Yes Disposition Time: 16:09 <Marcellus Fernandez - Last Filed: 01/10/18 16:08> - Disposition Disposition Time: 20:28 Patient Plan: Transfer To ([facility]ulance) <Rex Luciano - Last Filed: 01/10/18 20:29> - Disposition Diagnosis: Anxiety Disposition: Transfer [facility] Patient Problems: Current Active Problems Problem Status Onset Anxiety Acute Condition: GOOD Referrals: PCP,NO [Primary Care Provider] - Follow up with primary Forms: [employer] (Arabic)
[2018-01-10 13:11] LABS: BASO # 0.03 K/mm3 (0.0-2.0); BASO % 0.3 % (0.0-3.0); EOS # 0.1 (0.0-0.7); GRAN # 7.07 (1.4-6.5); GRAN % 75.9 % (50.0-68.0); HEMOGLOBIN 15.8 g/dL (12.0-16.0); LYMPH # 1.6 (1.2-3.4); LYMPH % 16.8 % (22.0-35.0); MEAN CELL VOLUME 89.4 fl (80.0-105.0); MEAN CORPUSCULAR HEMOGLOBIN 30.6 pg (25.0-35.0); MEAN CORPUSCULAR HGB CONC 34.2 g/dl (31.0-37.0); MEAN PLATELET VOLUME 8.9 fl (7.0-11.0); MONO # 0.6 (0.1-0.6); RBC 5.17 10^6/uL (3.5-6.1); RED CELL DISTRIBUTION WIDTH 13.4 % (11.5-14.5); WHITE BLOOD COUNT 9.3 10^3/ul (4.5-11.0)
[2018-01-10 13:21] LABS: ALB/GLOB RATIO 1.3 (1.1-1.8); ALBUMIN 4.6 g/dL (3.0-4.8); ALT/SGPT 24 U/L (7-56); AST/SGOT 17 U/L (14-36); BLOOD UREA NITROGEN 9 mg/dL (7-21); CALCIUM 9.5 mg/dL (8.4-10.5); GFR AFRICAN-AMERICAN > 60; GFR NON-AFRICAN AMERICAN > 60
[2018-01-10 13:23] LABS: URINE BILIRUBIN NEGATIVE (NEGATIVE); URINE BLOOD SMALL (NEGATIVE); URINE GLUCOSE (UA) NEGATIVE (NEGATIVE); URINE LEUKOCYTE ESTERASE TRACE Leu/uL (NEGATIVE); URINE PROTEIN TRACE mg/dL (<30 mg/dL)
[2018-01-10 13:24] LABS: URINE APPEARANCE TURBID (CLEAR); URINE COLOR YELLOW (YELLOW)
[2018-01-10 13:25] LABS: HCG,QUALITATIVE URINE NEGATIVE (NEGATIVE)
--- NOTE | 2018-01-10 13:28 | RAD ---
HISTORY: Panic Attack COMPARISON: 06/30/2017 FINDINGS: LUNGS: No active pulmonary disease. PLEURA: No significant pleural effusion identified, no pneumothorax apparent. CARDIOVASCULAR: Normal. OSSEOUS STRUCTURES: No significant abnormalities. VISUALIZED UPPER ABDOMEN: Normal. OTHER FINDINGS: None. IMPRESSION: No active disease.
[2018-01-10 13:31] LABS: PHENCYCLIDINE, UR NEGATIVE (NEGATIVE)
[2018-01-10 13:35] LABS: BARBITURATES, UR NEGATIVE (NEGATIVE); BENZODIAZEPINES, UR POSITIVE (NEGATIVE); OPIATES, UR NEGATIVE (NEGATIVE)
[2018-01-10 13:38] VITALS: RESP 16; TEMP 98
[2018-01-10 13:39] LABS: URINE RBC 0 - 2 /hpf (0-2)
[2018-01-10 13:40] LABS: URINE BACTERIA MANY (NEG)
--- NOTE | 2018-01-10 17:54 | CARD ---
APPROVED REPORT EKG Measurement Heart [id number] <Conclusion> Normal sinus rhythm Possible Left atrial enlargement Borderline ECG
[2018-01-11 03:54] VITALS: BP 139/76; PULSE 74; O2SAT 100
== END 2018-01-10 22:18 | disposition short-term general hospital (02) ==
LOC: ED 11:33
DX: F41.9 Anxiety disorder, unspecified (principal); F43.10 Post-traumatic stress disorder, unspecified
CPT/HCPCS: 71045; 80053; 80320; 80324; 80345; 80346; 80349; 80353; 80358; 80361; 81001; 82550; 83735; 83992; 84703; 85025; 87086; 90791; 93005; 96361; 96374; 96375; 96376; 99284; J2060; J2405; J7030